=== PATIENT | female | born 1980 | race Caucasian/White ===

== ENCOUNTER 2018-05-08 23:22 | Emergency (ER) | payer BC ==
[~2018-05-08] VITALS: Ht 162.5 cm; Wt 71.7 kg
[2018-05-08] MEDS ORDERED: OXYCODONE HCL15 MG PO (23:51)
[2018-05-08] MEDS ORDERED: TOPROL XL25 MG PO (23:51)
[2018-05-08] MEDS ORDERED: EFFEXOR XR150 M1 PO (23:51)
[2018-05-08] MEDS ORDERED: PROZAC40 M1 PO (23:51)
[2018-05-08] MEDS ORDERED: GABAPENTIN TAB600 MG PO (23:52)
[2018-05-09] MEDS ORDERED: SEPTDS PO (00:14)
[2018-05-09] MEDS ORDERED: VIBRAMYCIN100 MG PO (00:14)
== END 2018-05-09 00:48 | disposition home or self-care (01) ==
LOC: ED 23:22
DX: T81.30XA Disruption of wound, unspecified, initial encounter (principal); Z79.899 Other long term (current) drug therapy; Z88.0 Allergy status to penicillin; Z93.2 Ileostomy status; Z86.14 Personal history of Methicillin resistant Staphylococcus aureus infection

== ENCOUNTER 2018-05-30 21:55 | Emergency (ER) | payer OTHER ==
[~2018-05-30] VITALS: Ht 162.5 cm; Wt 71.7 kg
[~2018-05-30 21:55] MED LIST: EFFEXOR XR150 M1 PO; GABAPENTIN TAB600 MG PO; OXYCODONE HCL15 MG PO; PROZAC40 M1 PO; SEPTDS PO; TOPROL XL25 MG PO; VIBRAMYCIN100 MG PO
[2018-05-30] MEDS ORDERED: ZITHROMAX250 MG PO (22:26)
[2018-05-30] MEDS ORDERED: DIFLUCAN150 MG PO (22:27)
[2018-05-30] MEDS ORDERED: PROAIR HFA8.5 GM INH (22:27)
== END 2018-05-30 22:37 | disposition home or self-care (01) ==
LOC: ED 21:55
DX: J32.9 Chronic sinusitis, unspecified (principal); H66.93 Otitis media, unspecified, bilateral; F17.200 Nicotine dependence, unspecified, uncomplicated; Z88.0 Allergy status to penicillin; Z79.899 Other long term (current) drug therapy